=== PATIENT | female | born 1955 | race Caucasian/White ===

== ENCOUNTER 2021-01-03 10:38 | Day surgery (SDC) | payer OTHER ==
[~2021-01-03 10:38] MED LIST: AMBIE PO; CRESTOR5 MG PO; ESTRA PO; GLIMEPIRIDE2 M1 PO; HORIZANT300 MG PO; HYDROCHLOROTH12.5 MG PO; INVOKANA300 MG PO; LUMIGA; OXYBUTYNIN PO; VOLTA PO
[2021-01-03] MEDS ORDERED: ULTRACET PO (15:49)
== END 2021-01-03 15:47 | disposition home or self-care (01) ==
LOC: CIR.AMB 10:38 → NUR 12:26 → CIR.AMB 12:26
PROVIDERS: ATTEND Surgery
DX: R15.9 Full incontinence of feces (principal); Z20.822 Contact with and (suspected) exposure to COVID-19
CPT/HCPCS: 64581; C1778; 95972

== ENCOUNTER 2021-01-17 06:27 | Day surgery (SDC) | payer OTHER ==
[~2021-01-17 06:27] MED LIST changes: +ULTRACET PO
[2021-01-17] MEDS ORDERED: ULTRACET PO (08:19)
== END 2021-01-17 16:05 | disposition home or self-care (01) ==
LOC: CIR.AMB 06:27
PROVIDERS: ATTEND Surgery
DX: R15.9 Full incontinence of feces (principal); Z20.822 Contact with and (suspected) exposure to COVID-19
CPT/HCPCS: 64590; L8679; 95972

== ENCOUNTER 2024-06-09 07:12 | Outpatient (CLI) | payer OTHER | END 2024-06-09 07:16 | disposition home or self-care (01) | LOC: TOM 07:12 | PROVIDERS: ATTEND Specialist | DX: K40.90 Unilateral inguinal hernia, without obstruction or gangrene, not specified as recurrent (principal); R10.2 Pelvic and perineal pain ==